=== PATIENT | male | born 1950 | race African-American/Black ===

== ENCOUNTER 2022-02-15 19:23 | Inpatient (IN) ==
[2022-02-15] MEDS ORDERED: TIROFIBAN 5,000 MCG/100 ML PREMIX IV SCH ×2 (19:26→20:30)
[2022-02-15] MEDS ORDERED: ZALEPLON 5 MG CAPSULE PO PRN (19:57)
[2022-02-15] MEDS ORDERED: ACETAMINOPHEN 325 MG TABLET PO PRN (19:57)
[2022-02-15 20:19] LABS: Basophils % 0.3 % (0.0-0.8); Eosinophils % 0.4 % (0.00-10.9); Hematocrit 47.9 VOL% (42.0-52.0); Hemoglobin 16.2 GM/DL (14.0-18.0); Immature Granulocytes Absolute 0.07 #; Lymphocytes # 1.5 10*3/uL (1.4-4.0); Lymphocytes % 20.2 % (21.2-54.2); Mean Corpuscular HGB Conc 33.8 GM/DL (32-36); Mean Corpuscular Volume 101.3 FL (87-102); Mean Platelet Volume 9.2 FL (9.6-12.0); Monocytes # 0.4 10*3/uL (0.11-0.8); Monocytes % 4.8 % (1.7-12.7); Neutrophils % 73.3 % (38.7-73.9); Platelet Count 209 T/CUMM (130-400); Red Blood Count 4.73 MC/CUMM (3.8-5.5); Red Cell Distribution Width 14.6 % (9.3-17.3); White Blood Count 7.3 T/CUMM (4-12)
[2022-02-15 20:48] LABS: CKMB % 8.96 %; Calcium 9.1 MG/DL (8.5-10.1); Osmolality,Calculated 269.8 MOS/KG (273-304); Potassium 3.4 MMOL/L (3.5-5.1)
[2022-02-15 21:00] LABS: High Sensitive Troponin I* 7119.7 ng/L (0-78)
[2022-02-15] MEDS: TICAGRELOR 90 MG TABLET PO SCH (21:04)
[2022-02-15] MEDS: carvediloL 6.25 MG TABLET PO SCH (22:29)
[2022-02-15] MEDS: ROSUVASTATIN 20 MG TABLET PO SCH (22:29)
[2022-02-16 04:22] LABS: CKMB % 14.18 %; Risk Ratio 4.08; VLDL Cholesterol 13.6 MG/DL
[2022-02-16 04:34] LABS: High Sensitive Troponin I* 106519.5 ng/L (0-78)
[2022-02-16] MEDS ORDERED: HYDROmorphone 1 MG/1 ML SYRINGE IV ONE (06:00)
[2022-02-16] MEDS ORDERED: MIDAZOLAM 2 MG/2 ML VIAL IV ONE (06:00)
[2022-02-16] MEDS: ASPIRIN EC 81 MG TABLET PO SCH (08:24)
[2022-02-16] MEDS: TICAGRELOR 90 MG TABLET PO SCH ×2 (08:24→20:43)
[2022-02-16] MEDS: LOSARTAN 25 MG TABLET PO SCH (08:24)
[2022-02-16] MEDS: carvediloL 6.25 MG TABLET PO SCH ×2 (08:31→20:43)
[2022-02-16] MEDS ORDERED: POTASSIUM CHLORIDE 20 MEQ TABLET PO ONE (10:26)
[2022-02-16] MEDS: SPIRONOLACTONE 25 MG TABLET PO SCH (12:05)
[2022-02-16] MEDS: ASCORBIC ACID 500 MG TABLET PO SCH ×2 (12:05→20:43)
[2022-02-16] MEDS ORDERED: TIROFIBAN 5,000 MCG/100 ML PREMIX IV ONE (13:35)
[2022-02-16] MEDS ORDERED: ENOXAPARIN 30 MG/0.3 ML SYRINGE ONE (13:35)
[2022-02-16] MEDS ORDERED: TICAGRELOR 90 MG TABLET ONE (13:36)
[2022-02-16] MEDS: ROSUVASTATIN 20 MG TABLET PO SCH (20:43)
[2022-02-17 08:42] LABS: Basophils # 0.1 10*3/uL (0.0-0.2); Basophils % 0.5 % (0.0-0.8); Eosinophils % 0.2 % (0.00-10.9); Hematocrit 49.6 VOL% (42.0-52.0); Immature Granulocytes % 0.5 %; Immature Granulocytes Absolute 0.05 #; Lymphocytes # 1.3 10*3/uL (1.4-4.0); Lymphocytes % 14.1 % (21.2-54.2); Mean Corpuscular HGB Conc 34.3 GM/DL (32-36); Mean Corpuscular Volume 98.4 FL (87-102); Mean Platelet Volume 9.8 FL (9.6-12.0); Monocytes # 0.6 10*3/uL (0.11-0.8); Monocytes % 5.9 % (1.7-12.7); Neutrophils % 78.8 % (38.7-73.9); Platelet Count 217 T/CUMM (130-400); Red Blood Count 5.04 MC/CUMM (3.8-5.5); Red Cell Distribution Width 14.5 % (9.3-17.3); White Blood Count 9.5 T/CUMM (4-12)
[2022-02-17 09:03] LABS: Calcium 9.4 MG/DL (8.5-10.1); Osmolality,Calculated 271.8 MOS/KG (273-304); Potassium 3.4 MMOL/L (3.5-5.1)
[2022-02-17] MEDS: SPIRONOLACTONE 25 MG TABLET PO SCH (09:23)
[2022-02-17] MEDS: ASCORBIC ACID 500 MG TABLET PO SCH (09:23)
[2022-02-17] MEDS: TICAGRELOR 90 MG TABLET PO SCH (09:23)
[2022-02-17] MEDS: carvediloL 6.25 MG TABLET PO SCH (09:23)
[2022-02-17] MEDS: ASPIRIN EC 81 MG TABLET PO SCH (09:23)
[2022-02-17] MEDS: LOSARTAN 25 MG TABLET PO SCH (09:23)
[2022-02-17] MEDS ORDERED: POTASSIUM CHLORIDE 20 MEQ TABLET PO ONE (10:33)
[2022-02-17 12:10] VITALS: BP 112/73
== END 2022-02-17 12:18 | disposition home or self-care (01) | DRG 250 ==
LOC: N.ICU 19:23 → N.TELES 02-16 14:39
PROVIDERS: ADMIT Internal Medicine Cardiovascular Disease; ATTEND Internal Medicine Cardiovascular Disease